=== PATIENT | female | born 2000 | race Caucasian/White ===

== ENCOUNTER 2023-12-05 16:15 | Emergency (ER) | payer SELFPAY ==
[~2023-12-05] VITALS: Ht 170.2 cm; Wt 59.0 kg
[2023-12-05] MEDS ORDERED: HYDROMORPHONE 1 MG/1 ML DISP.SYRIN IV ONE ×3 (16:30→18:00)
[2023-12-05] MEDS ORDERED: IV NORMAL SALINE 1000 ML BAG IV ONE (16:30)
[2023-12-05] MEDS ORDERED: PROCHLORPERAZINE EDISYLATE 10 MG/2 ML VIAL IV ONE ×2 (16:30→21:45)
[2023-12-05] MEDS ORDERED: PROCHLORPERAZINE EDISYLATE 10 MG/2 ML VIAL ONE ×2 (16:32→21:51)
[2023-12-05] MEDS ORDERED: HYDROMORPHONE 1 MG/1 ML DISP.SYRIN ONE ×3 (16:32→17:51)
[2023-12-05 17:05] LABS: BASOPHILS % (AUTO) 0.5 % (0.0-2.0); EOSINOPHILS % (AUTO) 0.4 % (0.0-7.0); HEMATOCRIT 39.6 % (31.2-41.9); HEMOGLOBIN 13.6 g/dL (10.9-14.3); LYMPHOCYTES # (AUTO) 2.1 K/uL (0.8-4.8); LYMPHOCYTES % (AUTO) 19.7 % (20.5-51.5); MEAN CORPUSCULAR HEMOGLOBIN 30.2 uug (24.7-32.8); MEAN CORPUSCULAR HGB CONC 34 g/dL (32.3-35.6); MEAN CORPUSCULAR VOLUME 88.3 fL (75.5-95.3); MONOCYTES # (AUTO) 0.5 K/uL (0.1-1.30); MONOCYTES % (AUTO) 5.2 % (0.0-11.0); NEUTROPHILS # (AUTO) 7.8 K/uL (1.8-8.9); NEUTROPHILS % (AUTO) 74.2 % (38.5-71.5); PLATELET COUNT (AUTO) 265 K/uL (179-408); RED BLOOD CELL COUNT(AUTO) 4.49 MIL/uL (3.63-4.92); RED CELL DISTRIBUTION WIDTH 13.3 % (12.3-17.7); WHITE BLOOD COUNT (AUTO) 10.4 K/uL (3.8-11.8)
[2023-12-05 17:11] LABS: CALCIUM 8.7 mg/dL (8.5-10.1); CARBON DIOXIDE 23 mmol/L (21-32); CHLORIDE 103 mmol/L (98-107); CREATININE 0.7 mg/dL (0.6-1.3); GLUCOSE 105 mg/dL (74-106); POTASSIUM 3.1 mmol/L (3.5-5.1); SODIUM SERUM 139 mmol/L (136-145); UREA NITROGEN, BLOOD 14 mg/dL (7-18)
[2023-12-05 17:13] LABS: DIFFERENTIAL COMMENT 1
[2023-12-05 17:25] LABS: PREGNANCY TEST SERUM QUAN < 1 miul/L (0-6)
[2023-12-05 17:26] LABS: ALANINE AMINOTRANSFERASE 14 U/L (14-59); ALBUMIN 4.1 g/dL (3.4-5.0); ALKALINE PHOSPHATASE 55 U/L (50-136); ASPARTATE AMINOTRANSFERASE 20 U/L (15-37); BILIRUBIN,DIRECT 0.1 mg/dL (0.0-0.2); BILIRUBIN,TOTAL 0.3 mg/dL (0.2-1.0)
[2023-12-05] MEDS ORDERED: POTASSIUM CHLORIDE 100 ML ONE (17:32)
[2023-12-05] MEDS: POTASSIUM CHLORIDE 50 ML IV SCH ×4 (17:37→21:23)
[2023-12-05] MEDS ORDERED: KETOROLAC TROMETHAMINE 30 MG INJ ONE (17:52)
[2023-12-05] MEDS ORDERED: KETOROLAC TROMETHAMINE 30 MG INJ IVP ONE (18:00)
[2023-12-05 18:30] LABS: *BILIRUBIN,URIN NEGATIVE (NEGATIVE); *COLOR,URINE YELLOW (YELLOW); *KETONES,URINE 4+ (NEGATIVE); *PROTEIN,URINE TRACE (NEGATIVE); *UROBILINOGEN,URINE 0.2 E.U./dl (NORMAL); LEUKOCYTE ESTERASE ,URINE NEGATIVE (NEGATIVE); NITRITE, URINE NEGATIVE (NEGATIVE); PH,URINE 7.5 (5.0-8.0); UGLUCOSE NEGATIVE (NEGATIVE)
[2023-12-05 18:32] LABS: *BLOOD, URINE TRACE (NEGATIVE); *CLARITY,URINE SLIGHTLY CLOUDY (CLEAR)
[2023-12-05] MEDS ORDERED: PROC-11 PO (19:25)
[2023-12-05] MEDS ORDERED: KETO10TA2 PO (19:25)
[2023-12-05] MEDS ORDERED: HYDR-3980 PO (19:25)
[2023-12-05 19:30] LABS: WBC,URINE NONE SEEN /HPF (0-3)
[2023-12-05 19:31] LABS: BACTERIA,URINE FEW /HPF (NONE SEEN); SQUAMOUS EPITHELIAL CELL,UR MODERATE /HPF (NONE SEEN); URINE AMORPHOUS URATE MANY /HPF
[2023-12-05] MEDS ORDERED: POTASSIUM CHLORIDE 50 ML ONE ×2 (20:07→21:20)
[2023-12-05] MEDS ORDERED: TAMS-3 PO (21:01)
[2023-12-05 22:46] VITALS: BP 117/66; TEMP 98.5; O2SAT 98
[2023-12-06] MEDS ORDERED: HYDR-3980 PO (10:23)
[2023-12-06] MEDS ORDERED: PROC10TA13 PO ×2 (10:23→12:47)
[2023-12-06] MEDS ORDERED: KETO10TA2 PO ×2 (10:23→12:47)
[2023-12-06] MEDS ORDERED: HYDR-3972 PO (12:47)
[2023-12-06] MEDS ORDERED: TAMS-3 PO (12:47)
== END 2023-12-05 22:47 | disposition home or self-care (01) ==
LOC: ER 16:15
DX: N20.2 Calculus of kidney with calculus of ureter (principal); R10.2 Pelvic and perineal pain; N13.30 Unspecified hydronephrosis; E87.6 Hypokalemia; Z79.899 Other long term (current) drug therapy
CPT/HCPCS: 36415; 83605; 85025; A4606; A4663; J0780; J1170; J1885; J3480; J7040